=== PATIENT | female | born 1950 | race Caucasian/White ===

== ENCOUNTER → 2017-03-05 | Outpatient (CLI) | payer BC | LOC: FIMAGING 15:08 | PROVIDERS: ATTEND Internal Medicine | DX: Z12.31 Encounter for screening mammogram for malignant neoplasm of breast (principal); Z80.3 Family history of malignant neoplasm of breast | CPT/HCPCS: G0202 ==

== ENCOUNTER 2017-08-13 17:11 | Emergency (ER) | payer OTHER, MEDICARE ==
[2017-08-13] MEDS ORDERED: NS 500 ML IV ONE (17:27)
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
--- NOTE | 2017-08-13 17:57 | CPEKG ---
Heart Rate: 48 RR Interval: 1250 P-R Interval: 188 QRSD Interval: 98 QT Interval: 440 QTC Interval: 394 P [place]: 63 QRS [place]: -14 T Wave [place]: 61 EKG Severity - OTHERWISE NORMAL ECG - EKG Impression: SINUS BRADYCARDIA Electronically Signed By: Tariq Fleming 14-Aug-2017 10:56:41
[2017-08-13 18:25] LABS: PLATELET COUNT 265 10^3/uL (150-400)
[2017-08-13 18:42] VITALS: RESP 16
[2017-08-13 19:20] VITALS: BP 141/94; PULSE 55; TEMP 97.9; O2SAT 98
== END 2017-08-13 19:20 | disposition home or self-care (01) ==
DX: R00.2 Palpitations (principal); E86.9 Volume depletion, unspecified; I10 Essential (primary) hypertension; Z79.82 Long term (current) use of aspirin

== ENCOUNTER → 2018-04-11 | Outpatient (CLI) | payer OTHER, MEDICARE | LOC: FIMAGING 15:15 | PROVIDERS: ATTEND Internal Medicine | DX: Z12.31 Encounter for screening mammogram for malignant neoplasm of breast (principal); Z80.3 Family history of malignant neoplasm of breast ==

== ENCOUNTER → 2018-06-24 | Outpatient (CLI) | payer OTHER, MEDICARE | LOC: BMCIMAGING 14:48 | PROVIDERS: ATTEND Internal Medicine Rheumatology | DX: Z13.820 Encounter for screening for osteoporosis (principal); M81.0 Age-related osteoporosis without current pathological fracture; Z78.0 Asymptomatic menopausal state; Z87.81 Personal history of (healed) traumatic fracture ==

== ENCOUNTER 2018-08-11 13:21 | Inpatient (IN) | payer OTHER, MEDICARE ==
[2018-08-11] MEDS: HYDROmorphONE/DILAUDID 2 MG TAB PO PRN (19:38)
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
[2018-08-11] MEDS: MELATONIN 3 MG TAB PO SCH (21:26)
[2018-08-11] MEDS: METHOCARBAMOL 500 MG TAB PO SCH (21:26)
[2018-08-11] MEDS: ACETAMINOPHEN 500 MG TAB PO SCH (21:26)
[2018-08-11] MEDS: POLYETHYLENE GLYCOL 3350 17 GM PKT PO SCH (21:27)
[2018-08-11] MEDS: GABAPENTIN 300 MG CAP PO SCH (21:27)
[2018-08-12] MEDS: HYDROmorphONE/DILAUDID 2 MG TAB PO PRN ×5 (03:50→23:52)
[2018-08-12] MEDS: METHOCARBAMOL 500 MG TAB PO SCH (05:46)
[2018-08-12] MEDS: ENOXAPARIN 40 MG/0.4 ML SYR SC SCH (08:16)
[2018-08-12] MEDS: CHOLECALCIFEROL VIT D3 2,000 UNITS TAB/CAP PO SCH (08:17)
[2018-08-12] MEDS: SENNOSIDES/DOCUSATE SODIUM TAB PO SCH (08:17)
[2018-08-12] MEDS: ACETAMINOPHEN 500 MG TAB PO SCH ×3 (08:19→21:27)
[2018-08-12] MEDS: POLYETHYLENE GLYCOL 3350 17 GM PKT PO SCH ×2 (08:20→20:59)
[2018-08-12] MEDS: GABAPENTIN 300 MG CAP PO SCH ×3 (08:20→21:00)
[2018-08-12] MEDS: ASPIRIN EC 81 MG TAB PO SCH (08:20)
[2018-08-12] MEDS: LIDOCAINE 4%/MENTHOL 1% PATCH TD SCH (08:25)
[2018-08-12 09:07] LABS: PLATELET COUNT 483 10^3/uL (150-400)
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
--- NOTE | 2018-08-12 16:41 | PDOREHIP ---
Admission [facility] - Admission - 3 Day Assessment Period Admission Date/Day 1: 08/11/18 Day 2: 08/12/18 Day 3: 08/13/18 - Active Diagnoses Comorbidities and Co-existing Conditions at Admission: [id number]. None of the Above - Skin Conditions Unhealed Pressure Ulcer (1 or more/Stage 1 or >)-Admission: 0. No # Stage 1 Pressure Ulcers-Admission: 0 # Stage 2 Pressure Ulcers-Admission: 0 # Stage 3 Pressure Ulcers-Admission: 0 # Stage 4 Pressure Ulcers-Admission: 0 # Unstageable Pressure Ulcers (Non-remove Dress)-Admission: 0 # Unstageable Pressure Ulcers (Slough/Eschar)-Admission: 0 # Unstageable Pressure Ulcers (Deep Tissue Injury)-Admission: 0
[2018-08-12] MEDS: MELATONIN 3 MG TAB PO SCH (20:58)
[2018-08-13] MEDS: PATCH REMOVAL 1 EA PATCH TD SCH ×2 (04:35→22:12)
[2018-08-13] MEDS: HYDROmorphONE/DILAUDID 2 MG TAB PO PRN ×5 (04:36→22:18)
[2018-08-13] MEDS: GABAPENTIN 300 MG CAP PO SCH (07:54)
[2018-08-13] MEDS: ASPIRIN EC 81 MG TAB PO SCH (07:54)
[2018-08-13] MEDS: ACETAMINOPHEN 500 MG TAB PO SCH ×3 (07:54→22:14)
[2018-08-13] MEDS: ENOXAPARIN 40 MG/0.4 ML SYR SC SCH (07:55)
[2018-08-13] MEDS: CHOLECALCIFEROL VIT D3 2,000 UNITS TAB/CAP PO SCH (07:55)
[2018-08-13] MEDS: LIDOCAINE 4%/MENTHOL 1% PATCH TD SCH ×3 (08:08→20:42)
--- NOTE | 2018-08-13 09:25 | SOAPPROG ---
SOAP Progress Note Assessment/Plan: Assessment: Major multiple fractures status post ORIF of the left olecranon and ulna, left tibial plateau, and right femur with touchdown weightbearing on the left upper and lower extremity. PT and OT to optimize mobility and activities of daily living. * Initial functional independence measure is 58 on 08/13/2018. Moderate assist for bed mobility. Fearful with transfers, needs 2 person max assist. Sit to stand requires max assist with quad cane. .Left knee flexion limited to 45 degrees. Transfers better from and to raised surfaces. Upper body dressing with mon assist, lower body with mod assist. * Continue PT and OT. Cognitive issues post-concussion. * Continue FLUXER. Fatigue, morning of 08/12/2018. Unclear etiology. BMP wnl and not dehydrated. CBC with improved anemia but WBCs higher. * Check UA. * D/C gabapentin. Osteoporosis. She has been treated with denosumab and she was concerned about how that might affect her bone healing. Her last injection was in June of this year and she gets injections every 6 months. * Discussed with Dr. Miller, 08/12/2018. Denies you mad most likely does not interfere with healing, and there is no specific medication or other course of action to improve bone healing while on denosumab. * Resume her home dose of cholecalciferol, 5000 units q.day. Pain management. Continue hydromorphone as ordered out of the hospital. Increased gabapentin from 200 mg three times daily to 300 mg three times daily and will monitor efficacy of pain management. Did not continue ketorolac as she needs to be simultaneously on anticoagulation and she also takes aspirin, and ketorolac would add to her risk for GI bleed. * Nursing to offer hydromorphone prior to morning ADLs. Used 10 mg total in 24 hr on 08/12/2018. * Discontinue methocarbamol, 08/12/2018, as there does not seem to be muscle spasm. * Discontinue gabapentin, 08/12/2018, due to sedation. Also has not seemed to improve her pain management. Anemia most likely due to blood loss from trauma and surgeries had transfusions x2 with initial hospitalization. * Hemoglobin and hematocrit have drifted down from 8.1 and 25.5 on 08/09/2018 to 7.5 and 23.6 on 08/12/2018, likely expected post transfusion. Improving 2018. History of coronary stenting due to iatrogenic injury during coronary catheterization. Continue aspirin 81 mg daily. Hypertension. Blood pressure medications have been held. Monitor for increased blood pressure and reduce medications as needed. She is taking melatonin scheduled, presumably for insomnia, at 10 mg. We will discuss further regarding whether she is getting benefit from this and whether it should be continued. Opiate-induced constipation. Continue polyethylene glycol and senna. She will be monitored for efficacy and medications will be adjusted. Prophylaxis. With her recent trauma and her toe-touch weightbearing status on the left lower extremity, she is at elevated risk for DVT and will be treated with enoxaparin 40 mg subcutaneous daily. DISPOSITION: Attended staffing, 15 min. D/W case mgmt, wire splicer, pharmacist, nurse, PT, OT, FLUXER. may not be able to provide sufficient assistance; may consider respite stay at [facility], depending on progress. Discharge date set for 08/26/2018. Followup. * She is to follow up with orthopedic surgeon, Dr. Александр Jeronimo, at 2 weeks post surgery, which would be 08/20/2018. If she is to remain in inpatient rehabilitation at that time there will be discussion as to whether the appointment can be postponed. * Wound care and staple removal discussed with orthopedic surgeon Dr. Kennedy at [facility] in [place]. 11 days would be on the early side to remove josé from ORIF of right femur. Will order removal on 08/15/2018. * She can pursue followup with ENT if her nasal fracture does not heal with a satisfactory cosmetic result. * Her defective cigarette slitter is Dr. Modesto Miller and her primary care physician, Dr. Mary Anne Chang. 08/13/18 20:22 Subjective: Complains of severe fatigue this morning. She did not shower with OT. She was having off difficult time holding her head up off the pillow. She is feeling better now. No fevers or chills, no cough or dyspnea, no nausea, vomiting, constipation, or diarrhea. Feeling better now, sitting up on the edge of the bed with Occupational therapy. Objective: Vital Signs Temp Pulse Resp BP Pulse Ox 36.7 C 56 L 15 107/64 92 08/13/18 06:32 08/13/18 06:32 08/13/18 06:32 08/13/18 06:32 08/13/18 06:32 Laboratory Results 08/12/18 06:00 08/12/18 06:00 08/12/18 08/13/18 08/14/18 05:59 05:59 05:59 Intake Total 270 840 Output Total 400 800 Balance -130 40 - Time Spent With Patient Time Spent With Patient: Greater than 35 minutes floor time today, including more than 50% of time in coordination of care during staffing meeting, and counseling patient. Physical Exam - Physical Exam General Appearance: WD/WN, alert, no apparent distress, thin Respiratory: normal breath sounds, No crackles, No rhonchi, No wheezing Cardiac/Chest: regular rate, rhythm, No edema, No diastolic murmur, No systolic murmur Skin: normal color, warm/dry Neuro/Psych: no motor/sensory deficits, alert, normal mood/affect, oriented x 3 ICD10 Worksheet Patient Problems: Problems Problem Status Onset Pubic ramus fracture Acute
[2018-08-13 10:28] LABS: PLATELET COUNT 526 10^3/uL (150-400)
[2018-08-13] MEDS: SENNOSIDES/DOCUSATE SODIUM TAB PO SCH (20:43)
[2018-08-13] MEDS: POLYETHYLENE GLYCOL 3350 17 GM PKT PO SCH ×2 (20:43→22:12)
[2018-08-13] MEDS: MELATONIN 3 MG TAB PO SCH (21:40)
[2018-08-14] MEDS: HYDROmorphONE/DILAUDID 2 MG TAB PO PRN ×3 (03:58→22:03)
[2018-08-14] MEDS: ACETAMINOPHEN 500 MG TAB PO SCH ×3 (08:01→21:19)
[2018-08-14] MEDS: ENOXAPARIN 40 MG/0.4 ML SYR SC SCH (08:02)
[2018-08-14] MEDS: LIDOCAINE 4%/MENTHOL 1% PATCH TD SCH (08:05)
[2018-08-14] MEDS: CHOLECALCIFEROL VIT D3 2,000 UNITS TAB/CAP PO SCH (09:14)
[2018-08-14] MEDS: SENNOSIDES/DOCUSATE SODIUM TAB PO SCH (09:19)
[2018-08-14] MEDS: POLYETHYLENE GLYCOL 3350 17 GM PKT PO SCH ×2 (09:19→21:16)
[2018-08-14] MEDS: ASPIRIN EC 81 MG TAB PO SCH (09:19)
[2018-08-14] MEDS ORDERED: ONDANSETRON DISINTEGRATING 4 MG TAB PO ONE (10:01)
--- NOTE | 2018-08-14 11:59 | SOAPPROG ---
SOAP Progress Note Assessment/Plan: Assessment: Major multiple fractures status post ORIF of the left olecranon and ulna, left tibial plateau, and right femur with touchdown weightbearing on the left upper and lower extremity. PT and OT to optimize mobility and activities of daily living. * Initial functional independence measure is 58 on 08/13/2018. Moderate assist for bed mobility. Fearful with transfers, needs 2 person max assist. Sit to stand requires max assist with quad cane. .Left knee flexion limited to 45 degrees. Transfers better from and to raised surfaces. Upper body dressing with min assist, lower body with mod assist. * Continue PT and OT. Cognitive issues post-concussion. * Continue NET WASHER. Fatigue, morning of 08/12/2018. Unclear etiology. BMP wnl and not dehydrated. CBC with improved anemia but WBCs higher. * Improved with DC of gabapentin. * UA consistent with UTI, 08/13/2018. Start nitrofurantoin 100 mg BID 08/14/2018 for 7 days. Ordered urine culture 08/14/2017. Orthostatic hypotension. * She has had reduced p.o intake due to desire to reduce nocturia and use of bed bearden. * May also be related to prolonged time supine during her hospitalization. * Encourage increased fluid intake but can stop after dinner. Hope that nocturia improves with treatment of UTI. Osteoporosis. She has been treated with denosumab and she was concerned about how that might affect her bone healing. Her last injection was in June of this year and she gets injections every 6 months. * Discussed with Dr. Miller, 08/12/2018. Denies you mad most likely does not interfere with healing, and there is no specific medication or other course of action to improve bone healing while on denosumab. * Resume her home dose of cholecalciferol, 5000 units q.day. Pain management. Continue hydromorphone as ordered out of the hospital. Increased gabapentin from 200 mg three times daily to 300 mg three times daily and will monitor efficacy of pain management. Did not continue ketorolac as she needs to be simultaneously on anticoagulation and she also takes aspirin, and ketorolac would add to her risk for GI bleed. * Nursing to offer hydromorphone prior to morning ADLs. Used 10 mg total in 24 hr on 08/12/2018 and 08/13/2018. * Discontinue methocarbamol, 08/12/2018, as there does not seem to be muscle spasm. * Discontinue gabapentin, 08/12/2018, due to sedation. Also has not seemed to improve her pain management. Anemia most likely due to blood loss from trauma and surgeries had transfusions x2 with initial hospitalization. * Hemoglobin and hematocrit have drifted down from 8.1 and 25.5 on 08/09/2018 to 7.5 and 23.6 on 08/12/2018, likely expected post transfusion. Improving 2018. History of coronary stenting due to iatrogenic injury during coronary catheterization. Continue aspirin 81 mg daily. Hypertension. Blood pressure medications have been held. Monitor for increased blood pressure and reduce medications as needed. She is taking melatonin scheduled, presumably for insomnia, at 10 mg. We will discuss further regarding whether she is getting benefit from this and whether it should be continued. Opiate-induced constipation. Continue polyethylene glycol and senna. She will be monitored for efficacy and medications will be adjusted. Prophylaxis. With her recent trauma and her toe-touch weightbearing status on the left lower extremity, she is at elevated risk for DVT and will be treated with enoxaparin 40 mg subcutaneous daily. DISPOSITION: may not be able to provide sufficient assistance; may consider respite stay at [facility], depending on progress. Discharge date set for . Followup. * She is to follow up with orthopedic surgeon, Dr. Александр Jeronimo, at 2 weeks post surgery, which would be 08/20/2018. If she is to remain in inpatient rehabilitation at that time there will be discussion as to whether the appointment can be postponed. * Wound care and staple removal discussed with orthopedic surgeon Dr. Kennedy at [facility] in [place]. 11 days would be on the early side to remove josé from ORIF of right femur. Will order removal on 08/15/2018. * She can pursue followup with ENT if her nasal fracture does not heal with a satisfactory cosmetic result. * Her warp tying machine knotter is Dr. Modesto Miller and her primary care physician, Dr. Mary Anne Chang. 08/14/18 14:37 Subjective: Has been feeling hot and feeling chilled. Happened this morning while she was in the wheelchair. She also felt lightheaded. She is not aware of dysuria. She says she always urinary frequently though she has had nocturia and she is limiting her daytime fluid intake due to the nocturia and her dislike of using the bedpan. No cough or dyspnea. No soreness around her incisions. Objective: Vital Signs Temp Pulse Resp BP Pulse Ox 36.8 C 51 L 16 99/61 L 94 08/14/18 09:11 08/14/18 09:48 08/14/18 09:28 08/14/18 09:48 08/14/18 09:35 Laboratory Results 08/13/18 09:40 08/13/18 09:40 08/13/18 08/14/18 08/15/18 05:59 05:59 05:59 Intake Total 840 790 Output Total 800 1925 200 Balance 40 -1135 -200 Physical Exam - Physical Exam General Appearance: WD/WN, alert, no apparent distress Respiratory: No respiratory distress, No accessory muscle use Neuro/Psych: no motor/sensory deficits, alert, normal mood/affect, oriented x 3 ICD10 Worksheet Patient Problems: Problems Problem Status Onset Pubic ramus fracture Acute
[2018-08-14] MEDS: NITROFURANTOIN MACROBID 100 MG CAP PO SCH ×2 (14:49→21:19)
[2018-08-14] MEDS: MELATONIN 3 MG TAB PO SCH (21:19)
[2018-08-14] MEDS: PATCH REMOVAL 1 EA PATCH TD SCH (21:23)
[2018-08-15] MEDS: HYDROmorphONE/DILAUDID 2 MG TAB PO PRN (04:02)
[2018-08-15] MEDS ORDERED: HYDROmorphONE/DILAUDID 2 MG TAB PO PRN (05:20)
[2018-08-15] MEDS: METHOCARBAMOL 500 MG TAB PO ONE ×2 (05:30→06:06)
[2018-08-15] MEDS: LIDOCAINE 4%/MENTHOL 1% PATCH TD SCH (08:27)
[2018-08-15] MEDS: NITROFURANTOIN MACROBID 100 MG CAP PO SCH ×2 (08:28→21:01)
[2018-08-15] MEDS: ENOXAPARIN 40 MG/0.4 ML SYR SC SCH (08:28)
[2018-08-15] MEDS: ACETAMINOPHEN 500 MG TAB PO SCH ×3 (08:28→21:01)
[2018-08-15] MEDS: ASPIRIN EC 81 MG TAB PO SCH (08:29)
[2018-08-15] MEDS: CHOLECALCIFEROL VIT D3 2,000 UNITS TAB/CAP PO SCH (08:30)
[2018-08-15] MEDS: SENNOSIDES/DOCUSATE SODIUM TAB PO SCH (08:31)
[2018-08-15] MEDS: POLYETHYLENE GLYCOL 3350 17 GM PKT PO SCH ×2 (08:31→21:21)
--- NOTE | 2018-08-15 11:25 | SOAPPROG ---
SOAP Progress Note Assessment/Plan: Assessment: Major multiple fractures status post ORIF of the left olecranon and ulna, left tibial plateau, and right femur with touchdown weightbearing on the left upper and lower extremity. PT and OT to optimize mobility and activities of daily living. * Initial functional independence measure is 58 on 08/13/2018. Moderate assist for bed mobility. Fearful with transfers, needs 2 person max assist. Sit to stand requires max assist with quad cane. .Left knee flexion limited to 45 degrees. Transfers better from and to raised surfaces. Upper body dressing with min assist, lower body with mod assist. * Continue PT and OT. Cognitive issues post-concussion. * Continue RN HOME CARE. UTI; UA consistent with UTI, 08/13/2018. Started nitrofurantoin 100 mg BID 2018 for 7 days. Ordered urine culture 08/14/2017. * Trial of pyridium at HS 08/15/2018 to try to reduce irritative voiding symptoms. Insomnia. * Fatigue, morning of 08/12/2018. Unclear etiology. BMP wnl and not dehydrated. CBC with improved anemia but WBCs higher. * Improved with DC of gabapentin. * Discontinue melatonin as it has not been effective. Initiate trazodone 25 mg at HS starting 08/15/2018. Will also initiate morphine SR 15 mg at HS. Orthostatic hypotension. * She has had reduced p.o intake due to desire to reduce nocturia and use of bed bearden. * May also be related to prolonged time supine during her hospitalization. * Encourage increased fluid intake but can stop after dinner. Hope that nocturia improves with treatment of UTI. Osteoporosis. She has been treated with denosumab and she was concerned about how that might affect her bone healing. Her last injection was in June of this year and she gets injections every 6 months. * Discussed with Dr. Miller, 08/12/2018. Denies you mad most likely does not interfere with healing, and there is no specific medication or other course of action to improve bone healing while on denosumab. * Resume her home dose of cholecalciferol, 5000 units q.day. Pain management. Continue hydromorphone as ordered out of the hospital. Increased gabapentin from 200 mg three times daily to 300 mg three times daily and will monitor efficacy of pain management. Did not continue ketorolac as she needs to be simultaneously on anticoagulation and she also takes aspirin, and ketorolac would add to her risk for GI bleed. * Nursing to offer hydromorphone prior to morning ADLs. Used 10 mg total in 24 hr on 08/12/2018 and 08/13/2018. * Discontinue methocarbamol, 08/12/2018, as there does not seem to be muscle spasm. * Discontinue gabapentin, 08/12/2018, due to sedation. Also has not seemed to improve her pain management. * Trial of morphine SR at , 08/15/2018. Anemia most likely due to blood loss from trauma and surgeries had transfusions x2 with initial hospitalization. * Hemoglobin and hematocrit have drifted down from 8.1 and 25.5 on 08/09/2018 to 7.5 and 23.6 on 08/12/2018, likely expected post transfusion. Improving 2018. History of coronary stenting due to iatrogenic injury during coronary catheterization. Continue aspirin 81 mg daily. Hypertension. Blood pressure medications have been held. Monitor for increased blood pressure and reduce medications as needed. Anxiety. She is reticent to take medications. Hope for improvement with better sleep. Opiate-induced constipation. Continue polyethylene glycol and senna. She will be monitored for efficacy and medications will be adjusted. Prophylaxis. With her recent trauma and her toe-touch weightbearing status on the left lower extremity, she is at elevated risk for DVT and will be treated with enoxaparin 40 mg subcutaneous daily. DISPOSITION: may not be able to provide sufficient assistance; may consider respite stay at [facility], depending on progress. Discharge date set for . Followup. * She is to follow up with orthopedic surgeon, Dr. Александр Jeronimo, at 2 weeks post surgery, which would be 08/20/2018. If she is to remain in inpatient rehabilitation at that time there will be discussion as to whether the appointment can be postponed. * Wound care and staple removal discussed with orthopedic surgeon Dr. Kennedy at [facility] in [place]. 11 days would be on the early side to remove josé from ORIF of right femur. Will order removal on 08/15/2018. * She can pursue followup with ENT if her nasal fracture does not heal with a satisfactory cosmetic result. * Her jelly maker is Dr. Modesto Miller and her primary care physician, Dr. Mary Anne Chang. 08/15/18 11:17 Subjective: Had a difficult night last night, with pain in the right leg and urinary frequency Q 2 hours. Nurse noted incontinent of feces and urine, of which the patient was not aware. Needed no hydromorphone through the day yesterday and wonders if she was having withdrawal symptoms. Also noted nausea within an hour after taking hydromorphone on 2 separate occasions. Objective: Vital Signs Temp Pulse Resp BP Pulse Ox 36.7 C 51 L 16 136/78 H 96 08/15/18 06:07 08/15/18 06:07 08/15/18 06:07 08/15/18 06:07 08/15/18 06:07 Laboratory Results 08/13/18 09:40 08/13/18 09:40 08/14/18 08/15/18 08/16/18 05:59 05:59 05:59 Intake Total 790 1050 Output Total 1925 1550 Balance -1135 -500 Physical Exam - Physical Exam General Appearance: WD/WN, alert, no apparent distress Respiratory: normal breath sounds, No crackles, No rhonchi, No wheezing Cardiac/Chest: No edema Neuro/Psych: no motor/sensory deficits, alert, normal mood/affect, oriented x 3 ICD10 Worksheet Patient Problems: Problems Problem Status Onset Pubic ramus fracture Acute
[2018-08-15] MEDS: PHENAZOPYRIDINE HCL 100 MG TAB PO SCH (18:38)
[2018-08-15] MEDS ORDERED: morphINE SR 15 MG TAB PO SCH (21:00)
[2018-08-15] MEDS: PATCH REMOVAL 1 EA PATCH TD SCH (21:41)
[2018-08-15] MEDS: traZODone 50 MG TAB PO SCH (22:04)
[2018-08-15] MEDS ORDERED: IBUPROFEN 600 MG TAB PO ONE ×2 (22:21→22:30)
[2018-08-16] MEDS: ASPIRIN EC 81 MG TAB PO SCH (08:54)
[2018-08-16] MEDS: ENOXAPARIN 40 MG/0.4 ML SYR SC SCH (08:54)
[2018-08-16] MEDS: NITROFURANTOIN MACROBID 100 MG CAP PO SCH (08:54)
[2018-08-16] MEDS: ACETAMINOPHEN 500 MG TAB PO SCH ×3 (08:55→20:32)
[2018-08-16] MEDS: SENNOSIDES/DOCUSATE SODIUM TAB PO SCH (08:55)
[2018-08-16] MEDS: CHOLECALCIFEROL VIT D3 2,000 UNITS TAB/CAP PO SCH (08:55)
[2018-08-16] MEDS: POLYETHYLENE GLYCOL 3350 17 GM PKT PO SCH ×2 (08:58→21:04)
[2018-08-16] MEDS: LIDOCAINE 4%/MENTHOL 1% PATCH TD SCH (09:48)
[2018-08-16] MEDS ORDERED: FLUCONAZOLE 150 MG TAB PO ONE (11:12)
--- NOTE | 2018-08-16 11:51 | HOSPPROG ---
Hospitalist Progress Note Assessment/Plan: Major multiple fractures status post ORIF of the left olecranon and ulna, left tibial plateau, and right femur with touchdown weightbearing on the left upper and lower extremity. PT and OT to optimize mobility and activities of daily living. * Initial functional independence measure is 58 on 08/13/2018. Moderate assist for bed mobility. Fearful with transfers, needs 2 person max assist. Sit to stand requires max assist with quad cane. .Left knee flexion limited to 45 degrees. Transfers better from and to raised surfaces. Upper body dressing with min assist, lower body with mod assist. * Continue PT and OT. Cognitive issues post-concussion. * Continue ORGANIC SEARCH LEAD. UTI; UA consistent with UTI, 08/13/2018. Started nitrofurantoin 100 mg BID 2018 for 7 days. Ordered urine culture 08/14/2017. * Trial of pyridium at HS 08/15/2018 to try to reduce irritative voiding symptoms. * ABX SWITCHED TO KEFLEX TO COVERSKIN INFECTION. SENSITIVE ON CULTURE CELLULITIS AROUND INCISION * PROBABLY CELLULITIS. HAS BEENON DVT PROPH SINCE SURGERY SO DOUBT DVT. COULD BE FROM LEG BEING MORE DEPENDANT IN REHAB * WILL START KEFLEX TODAY AND CONSIDER SWITCHING TO ANCEF IF NO BETTER Insomnia. * Fatigue, morning of 08/12/2018. Unclear etiology. BMP wnl and not dehydrated. CBC with improved anemia but WBCs higher. * Improved with DC of gabapentin. * Discontinue melatonin as it has not been effective. Initiate trazodone 25 mg at HS starting 08/15/2018. Will also initiate morphine SR 15 mg at HS. * SLEPT WELL WITH TRAZADONE - NOT REALLY WITH MORPHINE. SHE WILL TAKE THAT EARLIER AND MAKE MS CONTIN PRN Orthostatic hypotension. * She has had reduced p.o intake due to desire to reduce nocturia and use of bed bearden. * May also be related to prolonged time supine during her hospitalization. * Encourage increased fluid intake but can stop after dinner. Hope that nocturia improves with treatment of UTI. Osteoporosis. She has been treated with denosumab and she was concerned about how that might affect her bone healing. Her last injection was in June of this year and she gets injections every 6 months. * Discussed with Dr. Miller, 08/12/2018. Denies you mad most likely does not interfere with healing, and there is no specific medication or other course of action to improve bone healing while on denosumab. * Resume her home dose of cholecalciferol, 5000 units q.day. Pain management. Continue hydromorphone as ordered out of the hospital. Increased gabapentin from 200 mg three times daily to 300 mg three times daily and will monitor efficacy of pain management. Did not continue ketorolac as she needs to be simultaneously on anticoagulation and she also takes aspirin, and ketorolac would add to her risk for GI bleed. * Nursing to offer hydromorphone prior to morning ADLs. Used 10 mg total in 24 hr on 08/12/2018 and 08/13/2018. * Discontinue methocarbamol, 08/12/2018, as there does not seem to be muscle spasm. * Discontinue gabapentin, 08/12/2018, due to sedation. Also has not seemed to improve her pain management. * Trial of morphine SR at , 08/15/2018. Anemia most likely due to blood loss from trauma and surgeries had transfusions x2 with initial hospitalization. * Hemoglobin and hematocrit have drifted down from 8.1 and 25.5 on 08/09/2018 to 7.5 and 23.6 on 08/12/2018, likely expected post transfusion. Improving 2018. History of coronary stenting due to iatrogenic injury during coronary catheterization. Continue aspirin 81 mg daily. Hypertension. Blood pressure medications have been held. Monitor for increased blood pressure and reduce medications as needed. Anxiety. She is reticent to take medications. Hope for improvement with better sleep. Opiate-induced constipation. Continue polyethylene glycol and senna. She will be monitored for efficacy and medications will be adjusted. Prophylaxis. With her recent trauma and her toe-touch weightbearing status on the left lower extremity, she is at elevated risk for DVT and will be treated with enoxaparin 40 mg subcutaneous daily. DISPOSITION: may not be able to provide sufficient assistance; may consider respite stay at [facility], depending on progress. Discharge date set for . Followup. * She is to follow up with orthopedic surgeon, Dr. Александр Jeronimo, at 2 weeks post surgery, which would be 08/20/2018. If she is to remain in inpatient rehabilitation at that time there will be discussion as to whether the appointment can be postponed. * Wound care and staple removal discussed with orthopedic surgeon Dr. Kennedy at [facility] in [place]. 11 days would be on the early side to remove josé from ORIF of right femur. Will order removal on 08/15/2018. * She can pursue followup with ENT if her nasal fracture does not heal with a satisfactory cosmetic result. * Her bsw is Dr. Modesto Miller and her primary care physician, Dr. Mary Anne Chang. Subjective: slept better with trazadone. left leg feels more warm and swollen. Objective: Vital Signs Temp Pulse Resp BP Pulse Ox 37.1 C 67 16 106/71 93 08/16/18 06:07 08/16/18 09:12 08/16/18 06:07 08/16/18 09:12 08/16/18 06:07 Microbiology 08/13/18 21:00 Urine Culture - Final Urine,Clean Catch Escherichia Coli Laboratory Results 08/13/18 09:40 08/13/18 09:40 08/15/18 08/16/18 08/17/18 05:59 05:59 05:59 Intake Total 1050 1350 Output Total 1550 2550 525 Balance -500 -1200 -525 - Physical Exam Constitutional: no apparent distress, appears nourished, not in pain Eyes: anicteric sclera, EOMI Cardiovascular: regular rate and rhythym, no murmur, rub, or gallop Respiratory: no respiratory distress Gastrointestinal: normoactive bowel sounds, soft, non-tender abdomen, no palpable masses Skin: other (incision is dry) Neurologic: AAOx3 Psychiatric: interacting appropriately, not anxious, not encephalopathic, thought process linear ICD10 Worksheet Patient Problems: Problems Problem Status Onset Pubic ramus fracture Acute
[2018-08-16] MEDS: CEPHALEXIN 500 MG CAP PO SCH ×3 (12:04→22:08)
[2018-08-16] MEDS: PHENAZOPYRIDINE HCL 100 MG TAB PO SCH (17:13)
[2018-08-16] MEDS: traZODone 50 MG TAB PO SCH (20:32)
[2018-08-16] MEDS: PATCH REMOVAL 1 EA PATCH TD SCH (21:03)
[2018-08-17] MEDS: CEPHALEXIN 500 MG CAP PO SCH ×3 (05:09→17:49)
[2018-08-17] MEDS: LIDOCAINE 4%/MENTHOL 1% PATCH TD SCH (05:22)
[2018-08-17] MEDS: ACETAMINOPHEN 500 MG TAB PO SCH ×3 (08:41→20:31)
[2018-08-17] MEDS: POLYETHYLENE GLYCOL 3350 17 GM PKT PO SCH ×2 (08:41→20:32)
[2018-08-17] MEDS: SENNOSIDES/DOCUSATE SODIUM TAB PO SCH (08:41)
[2018-08-17] MEDS: ASPIRIN EC 81 MG TAB PO SCH (08:42)
[2018-08-17] MEDS: CHOLECALCIFEROL VIT D3 2,000 UNITS TAB/CAP PO SCH (08:42)
[2018-08-17] MEDS: ENOXAPARIN 40 MG/0.4 ML SYR SC SCH (08:42)
--- NOTE | 2018-08-17 12:16 | HOSPPROG ---
Hospitalist Progress Note Assessment/Plan: Major multiple fractures status post ORIF of the left olecranon and ulna, left tibial plateau, and right femur with touchdown weightbearing on the left upper and lower extremity. PT and OT to optimize mobility and activities of daily living. * Initial functional independence measure is 58 on 08/13/2018. Moderate assist for bed mobility. Fearful with transfers, needs 2 person max assist. Sit to stand requires max assist with quad cane. .Left knee flexion limited to 45 degrees. Transfers better from and to raised surfaces. Upper body dressing with min assist, lower body with mod assist. * Continue PT and OT. Cognitive issues post-concussion. * Continue RAW MATERIAL PLANNER. UTI; UA consistent with UTI, 08/13/2018. Started nitrofurantoin 100 mg BID 2018 for 7 days. Ordered urine culture 08/14/2017. * Trial of pyridium at HS 08/15/2018 to try to reduce irritative voiding symptoms. * ABX SWITCHED TO KEFLEX TO COVER SKIN INFECTION. SENSITIVE ON CULTURE CELLULITIS AROUND INCISION * PROBABLY CELLULITIS. HAS BEEN ON DVT PROPH SINCE SURGERY SO DOUBT DVT. COULD BE FROM LEG BEING MORE DEPENDANT IN REHAB * IMPROVING ON KEFLEX - CONT TO MONITOR Insomnia. * Fatigue, morning of 08/12/2018. Unclear etiology. BMP wnl and not dehydrated. CBC with improved anemia but WBCs higher. * Improved with DC of gabapentin. * Discontinue melatonin as it has not been effective. Initiate trazodone 25 mg at HS starting 08/15/2018. Will also initiate morphine SR 15 mg at HS. * WILL TRY TRAZADONE AND MORPHINE AGAIN - WAS IN SOME PAIN LAST NIGHT Orthostatic hypotension. * She has had reduced p.o intake due to desire to reduce nocturia and use of bed bearden. * May also be related to prolonged time supine during her hospitalization. * Encourage increased fluid intake but can stop after dinner. Hope that nocturia improves with treatment of UTI. Osteoporosis. She has been treated with denosumab and she was concerned about how that might affect her bone healing. Her last injection was in June of this year and she gets injections every 6 months. * Discussed with Dr. Miller, 08/12/2018. Denies you mad most likely does not interfere with healing, and there is no specific medication or other course of action to improve bone healing while on denosumab. * Resume her home dose of cholecalciferol, 5000 units q.day. Pain management. Continue hydromorphone as ordered out of the hospital. Increased gabapentin from 200 mg three times daily to 300 mg three times daily and will monitor efficacy of pain management. Did not continue ketorolac as she needs to be simultaneously on anticoagulation and she also takes aspirin, and ketorolac would add to her risk for GI bleed. * Nursing to offer hydromorphone prior to morning ADLs. Used 10 mg total in 24 hr on 08/12/2018 and 08/13/2018. * Discontinue methocarbamol, 08/12/2018, as there does not seem to be muscle spasm. * Discontinue gabapentin, 08/12/2018, due to sedation. Also has not seemed to improve her pain management. * Trial of morphine SR at , 08/15/2018. Anemia most likely due to blood loss from trauma and surgeries had transfusions x2 with initial hospitalization. * Hemoglobin and hematocrit have drifted down from 8.1 and 25.5 on 08/09/2018 to 7.5 and 23.6 on 08/12/2018, likely expected post transfusion. Improving 2018. History of coronary stenting due to iatrogenic injury during coronary catheterization. Continue aspirin 81 mg daily. Hypertension. Blood pressure medications have been held. Monitor for increased blood pressure and reduce medications as needed. Anxiety. She is reticent to take medications. Hope for improvement with better sleep. Opiate-induced constipation. Continue polyethylene glycol and senna. She will be monitored for efficacy and medications will be adjusted. Prophylaxis. With her recent trauma and her toe-touch weightbearing status on the left lower extremity, she is at elevated risk for DVT and will be treated with enoxaparin 40 mg subcutaneous daily. DISPOSITION: may not be able to provide sufficient assistance; may consider respite stay at [facility], depending on progress. Discharge date set for . Followup. * She is to follow up with orthopedic surgeon, Dr. Александр Jeronimo, at 2 weeks post surgery, which would be 08/20/2018. If she is to remain in inpatient rehabilitation at that time there will be discussion as to whether the appointment can be postponed. * Wound care and staple removal discussed with orthopedic surgeon Dr. Kennedy at [facility] in [place]. 11 days would be on the early side to remove josé from ORIF of right femur. Will order removal on 08/15/2018. * She can pursue followup with ENT if her nasal fracture does not heal with a satisfactory cosmetic result. * Her arbor end mainspring former is Dr. Modesto Miller and her primary care physician, Dr. Mary Anne Chang. Subjective: didn't sleep as well last night. leg feels better Objective: Vital Signs Temp Pulse Resp BP Pulse Ox 36.6 C 58 L 15 124/86 H 95 08/17/18 05:27 08/17/18 09:08 08/17/18 05:27 08/17/18 09:08 08/17/18 05:27 Microbiology 08/13/18 21:00 Urine Culture - Final Urine,Clean Catch Escherichia Coli Laboratory Results 08/13/18 09:40 08/13/18 09:40 08/16/18 08/17/18 08/18/18 05:59 05:59 05:59 Intake Total 1350 750 600 Output Total 2550 2126 550 Balance -1200 -1376 50 - Physical Exam Constitutional: no apparent distress, appears nourished, not in pain Eyes: anicteric sclera, EOMI Ears, Nose, Mouth, Throat: moist mucous membranes Cardiovascular: regular rate and rhythym Respiratory: no respiratory distress, no rales or rhonchi, clear to auscultation Skin: other (left leg - improved erythema) Neurologic: AAOx3 Psychiatric: interacting appropriately, not anxious, not encephalopathic, thought process linear ICD10 Worksheet Patient Problems: Problems Problem Status Onset Pubic ramus fracture Acute
[2018-08-17] MEDS: traZODone 50 MG TAB PO SCH (20:31)
[2018-08-17] MEDS: morphINE SR 15 MG TAB PO PRN (20:31)
[2018-08-17] MEDS: PATCH REMOVAL 1 EA PATCH TD SCH (20:32)
[2018-08-18] MEDS: CEPHALEXIN 500 MG CAP PO SCH ×4 (01:00→18:00)
[2018-08-18] MEDS: LIDOCAINE 4%/MENTHOL 1% PATCH TD SCH (08:58)
[2018-08-18] MEDS: CHOLECALCIFEROL VIT D3 2,000 UNITS TAB/CAP PO SCH (09:00)
[2018-08-18] MEDS: POLYETHYLENE GLYCOL 3350 17 GM PKT PO SCH ×2 (09:00→21:35)
[2018-08-18] MEDS: ACETAMINOPHEN 500 MG TAB PO SCH ×3 (09:01→21:34)
[2018-08-18] MEDS: ASPIRIN EC 81 MG TAB PO SCH (09:01)
[2018-08-18] MEDS: ENOXAPARIN 40 MG/0.4 ML SYR SC SCH (09:02)
[2018-08-18] MEDS ORDERED: SENNOSIDES/DOCUSATE SODIUM TAB PO PRN (09:04)
--- NOTE | 2018-08-18 09:59 | SOAPPROG ---
SOAP Progress Note Assessment/Plan: Assessment: Major multiple fractures status post ORIF of the left olecranon and ulna, left tibial plateau, and right femur with touchdown weightbearing on the left upper and lower extremity. PT and OT to optimize mobility and activities of daily living. * Initial functional independence measure is 58 on 08/13/2018. Moderate assist for bed mobility. Fearful with transfers, needs 2 person max assist. Sit to stand requires max assist with quad cane. Left knee flexion limited to 45 degrees. Transfers better from and to raised surfaces. Upper body dressing with min assist, lower body with mod assist. * Has progressed to standby assist for bed mobility and moderate to maximal assist of 1 person for transfers. * Discussed with orthopedic KOMAL Oconnor, studio assistant for Dr. Jeronimo. May remove splint from the left upper extremity and initiate hinged brace with range of motion 0-90 degrees. * Continue PT and OT. Cognitive issues post-concussion. * Continue HEMP FIBER TAKER OFF. Infections: UTI and cellulitis. UA consistent with UTI, 08/13/2018. Started nitrofurantoin 100 mg BID 08/14/2018 for 7 days. Ordered urine culture 2017. * Had pyridium at HS starting 08/15/2018 X 2 days to try to reduce irritative voiding symptoms overnight. * Bearden-sensitive E. coli on urine culture. * Antibiotics changed to cephalexin for left lower leg cellulitis, which has responded well. Continue 7 days total. Insomnia. * Fatigue, morning of 08/12/2018. Unclear etiology. BMP wnl and not dehydrated. CBC with improved anemia but WBCs higher. * Improved with DC of gabapentin. * Discontinue melatonin as it has not been effective. Initiated trazodone 25 mg at HS starting 08/15/2018 and morphine SR 15 mg at HS. Orthostatic hypotension. * She has had reduced p.o intake due to desire to reduce nocturia and use of bed bearden. * May also be related to prolonged time supine during her hospitalization. * Encourage increased fluid intake but can stop after dinner. Hope that nocturia improves with treatment of UTI. Osteoporosis. She has been treated with denosumab and she was concerned about how that might affect her bone healing. Her last injection was in June of this year and she gets injections every 6 months. * Discussed with Dr. Miller, 08/12/2018. Denies you mad most likely does not interfere with healing, and there is no specific medication or other course of action to improve bone healing while on denosumab. * Resume her home dose of cholecalciferol, 5000 units q.day. Pain management. Continue hydromorphone as ordered out of the hospital. Increased gabapentin from 200 mg three times daily to 300 mg three times daily and will monitor efficacy of pain management. Did not continue ketorolac as she needs to be simultaneously on anticoagulation and she also takes aspirin, and ketorolac would add to her risk for GI bleed. * Nursing to offer hydromorphone prior to morning ADLs. Not used since . * Discontinued methocarbamol, 08/12/2018, as there does not seem to be muscle spasm. * Discontinued gabapentin, 08/12/2018, due to sedation. Also has not seemed to improve her pain management. * Trial of morphine SR at , 08/15/2018. Anemia most likely due to blood loss from trauma and surgeries. Had transfusions x2 with initial hospitalization. * Hemoglobin and hematocrit have drifted down from 8.1 and 25.5 on 08/09/2018 to 7.5 and 23.6 on 08/12/2018, likely expected post transfusion. Improving 2018. History of coronary stenting due to iatrogenic injury during coronary catheterization. Continue aspirin 81 mg daily. Hypertension. Blood pressure medications have been held. Monitor for increased blood pressure and reduce medications as needed. Anxiety. She is reticent to take medications. Hope for improvement with better sleep. Opiate-induced constipation. Continue polyethylene glycol and senna. Has had multiple bowel movements. Laxatives have been changed to p.r.n.. Prophylaxis. With her recent trauma and her toe-touch weightbearing status on the left lower extremity, she is at elevated risk for DVT and will be treated with enoxaparin 40 mg subcutaneous daily. DISPOSITION: may not be able to provide sufficient assistance; may consider respite stay at [facility], depending on progress. Discharge date set for . Followup. * She was to follow up with orthopedic surgeon, Dr. Александр Jeronimo, at 2 weeks post surgery, which would be 08/20/2018. Discussed with KOMAL Oconnor, studio assistant Dr. Jeronimo , 08/18/2018. Does need to follow up this week. There would be no change in weight-bearing status and they would not be taking x-rays. Acute of follow-up after discharge. * Wound care and staple removal discussed with orthopedic surgeon Dr. Kennedy at in [place]. 11 days would be on the early side to remove josé from ORIF of right femur. Will order removal on 08/15/2018. * She can pursue followup with ENT if her nasal fracture does not heal with a satisfactory cosmetic result. * Her planisher is Dr. Modesto Miller and her primary care physician, Dr. Mary Anne Chang. 08/19/18 10:53 Subjective: Slept well last night and overall is feeling better. Limited in her ability to stand due to pain in the right thigh. She denies lightheadedness with standing. Had frequent bowel movements yesterday and laxatives have been held. Objective: Vital Signs Temp Pulse Resp BP Pulse Ox 36.9 C 54 L 14 124/72 H 95 08/18/18 06:22 08/18/18 06:22 08/18/18 06:22 08/18/18 06:22 08/18/18 06:22 Laboratory Results 08/13/18 09:40 08/13/18 09:40 08/17/18 08/18/18 08/19/18 05:59 05:59 05:59 Intake Total 750 1250 Output Total 3718 3751 Balance -1376 -1006 - Time Spent With Patient Time Spent With Patient: Greater than 35 min floor time today, including coordination of care in discussion with the orthopedic service. Physical Exam - Physical Exam General Appearance: WD/WN, alert, no apparent distress Respiratory: No respiratory distress, No accessory muscle use Cardiac/Chest: No edema Skin: normal color, warm/dry, other (No signs of cellulitis left lower extremity.) Neuro/Psych: no motor/sensory deficits, alert, normal mood/affect, oriented x 3 ICD10 Worksheet Patient Problems: Problems Problem Status Onset Pubic ramus fracture Acute
[2018-08-18] MEDS: SENNOSIDES/DOCUSATE SODIUM TAB PO SCH (12:19)
[2018-08-18] MEDS: traZODone 50 MG TAB PO SCH (21:34)
[2018-08-18] MEDS: morphINE SR 15 MG TAB PO PRN (21:34)
[2018-08-18] MEDS: PATCH REMOVAL 1 EA PATCH TD SCH (21:43)
[2018-08-19] MEDS: CEPHALEXIN 500 MG CAP PO SCH ×5 (00:45→23:47)
[2018-08-19] MEDS: ASPIRIN EC 81 MG TAB PO SCH (08:47)
[2018-08-19] MEDS: CHOLECALCIFEROL VIT D3 2,000 UNITS TAB/CAP PO SCH (08:47)
[2018-08-19] MEDS: ENOXAPARIN 40 MG/0.4 ML SYR SC SCH (08:47)
[2018-08-19] MEDS: ACETAMINOPHEN 500 MG TAB PO SCH ×3 (08:47→21:37)
[2018-08-19] MEDS: POLYETHYLENE GLYCOL 3350 17 GM PKT PO SCH ×2 (08:47→21:41)
[2018-08-19] MEDS: LIDOCAINE 4%/MENTHOL 1% PATCH TD SCH (08:48)
--- NOTE | 2018-08-19 10:58 | SOAPPROG ---
SOAP Progress Note Assessment/Plan: Assessment: Major multiple fractures status post ORIF of the left olecranon and ulna, left tibial plateau, and right femur with touchdown weightbearing on the left upper and lower extremity. PT and OT to optimize mobility and activities of daily living. * Initial functional independence measure is 58 on 08/13/2018. Moderate assist for bed mobility. Fearful with transfers, needs 2 person max assist. Sit to stand requires max assist with quad cane. Left knee flexion limited to 45 degrees. Transfers better from and to raised surfaces. Upper body dressing with min assist, lower body with mod assist. * Has progressed to standby assist for bed mobility and moderate to maximal assist of 1 person for transfers. * Discussed with orthopedic KOMAL Oconnor, special events assistant for Dr. Jeronimo. May remove splint from the left upper extremity and initiate hinged brace with range of motion 0-90 degrees. * Continue PT and OT. Cognitive issues post-concussion. * Continue TEST ENGINE EVALUATOR. Infections: UTI and cellulitis. UA consistent with UTI, 08/13/2018. Started nitrofurantoin 100 mg BID 08/14/2018 for 7 days. Antibiotics changed to cephalexin for left lower leg cellulitis, which has responded well. Continue 7 days total. * UTI symptoms have completely resolved. * Had pyridium at HS starting 08/15/2018 X 2 days to try to reduce irritative voiding symptoms overnight. * Bearden-sensitive E. coli on urine culture. Insomnia. * Fatigue, morning of 08/12/2018. Unclear etiology. BMP wnl and not dehydrated. CBC with improved anemia but WBCs higher. * Improved with DC of gabapentin. * Discontinue melatonin as it has not been effective. Initiated trazodone 25 mg at HS starting 08/15/2018 and morphine SR 15 mg at HS. * Trial of no morphine SR tonight, 08/19/2018, and due to hypotension this morning, which may have been due to the morphine. Orthostatic hypotension. * She has had reduced p.o intake due to desire to reduce nocturia and use of bed bearden. * May also be related to prolonged time supine during her hospitalization. * Encourage increased fluid intake but can stop after dinner. Hope that nocturia improves with treatment of UTI. Osteoporosis. She has been treated with denosumab and she was concerned about how that might affect her bone healing. Her last injection was in June of this year and she gets injections every 6 months. * Discussed with Dr. Miller, 08/12/2018. Denies you mad most likely does not interfere with healing, and there is no specific medication or other course of action to improve bone healing while on denosumab. * Resume her home dose of cholecalciferol, 5000 units q.day. Pain management. Continue hydromorphone as ordered out of the hospital. Increased gabapentin from 200 mg three times daily to 300 mg three times daily and will monitor efficacy of pain management. Did not continue ketorolac as she needs to be simultaneously on anticoagulation and she also takes aspirin, and ketorolac would add to her risk for GI bleed. * Nursing to offer hydromorphone prior to morning ADLs. Not used since . * Discontinued methocarbamol, 08/12/2018, as there does not seem to be muscle spasm. * Discontinued gabapentin, 08/12/2018, due to sedation. Also has not seemed to improve her pain management. * Trial of morphine SR at , 08/15/2018. Changed to p.r.n. 08/16/2018. Anemia most likely due to blood loss from trauma and surgeries. Had transfusions x2 with initial hospitalization. * Hemoglobin and hematocrit have drifted down from 8.1 and 25.5 on 08/09/2018 to 7.5 and 23.6 on 08/12/2018, likely expected post transfusion. Improving 2018. History of coronary stenting due to iatrogenic injury during coronary catheterization. Continue aspirin 81 mg daily. Hypertension. Blood pressure medications have been held. Monitor for increased blood pressure and reduce medications as needed. Anxiety. She is reticent to take medications. Hope for improvement with better sleep. Opiate-induced constipation. Continue polyethylene glycol and senna. Has had multiple bowel movements. Laxatives have been changed to p.r.n.. Prophylaxis. With her recent trauma and her toe-touch weightbearing status on the left lower extremity, she is at elevated risk for DVT and will be treated with enoxaparin 40 mg subcutaneous daily. DISPOSITION: may not be able to provide sufficient assistance; may consider respite stay at [facility], depending on progress. Discharge date set for . Followup. * She was to follow up with orthopedic surgeon, Dr. Александр Jeronimo, at 2 weeks post surgery, which would be 08/20/2018. Discussed with KOMAL Oconnor, special events assistant Dr. Jeronimo , 08/18/2018. Does need to follow up this week. There would be no change in weight-bearing status and they would not be taking x-rays. Acute of follow-up after discharge. * Wound care and staple removal discussed with orthopedic surgeon Dr. Kennedy at [facility] in [place]. 11 days would be on the early side to remove josé from ORIF of right femur. Will order removal on 08/15/2018. * She can pursue followup with ENT if her nasal fracture does not heal with a satisfactory cosmetic result. * Her power driven brush maker is Dr. Modesto Miller and her primary care physician, Dr. Mary Anne Chang. Justification for wheelchair: * This patient has a mobility limitation that significantly impairs 1 or more mobility related ADLs in the home. Her functional mobility deficit cannot be resolved with a walker or cane. Her home is adequate for accessing rooms, maneuvering space and surfaces. Wheelchair will significantly improve her ability to participate in mobility related ADLs and she will use it regularly. Patient has not expressed and unwillingness to use the wheelchair. Patient has sufficient physical and mental ability to safely use the wheelchair. 08/19/18 14:56 Subjective: Slept well last. Per nursing, she said her legs felt weak this morning. Low blood pressure noted by OT today with a systolic of 86. She was symptomatic with lightheadedness. She is more comfortable horizontal in bed. Denies fevers chills. No cough or dyspnea. No dysuria or urinary frequency. Nocturia has resolved. Pain is adequately controlled. In the afternoon blood pressure is normal and she was not orthostatic. She participated in therapies. Objective: Vital Signs Temp Pulse Resp BP Pulse Ox 36.7 C 56 L 16 86/52 L 93 08/19/18 08:00 08/19/18 09:54 08/19/18 08:00 08/19/18 09:54 08/19/18 08:00 Laboratory Results 08/13/18 09:40 08/13/18 09:40 08/18/18 08/19/18 08/20/18 05:59 05:59 05:59 Intake Total 1250 950 Output Total 2251 1950 500 Balance -1001 -1000 -500 Physical Exam - Physical Exam General Appearance: WD/WN, alert, no apparent distress, thin Respiratory: normal breath sounds, crackles (Few left lower lobe which clear after deep inspiration), No rhonchi, No wheezing Cardiac/Chest: regular rate, rhythm, No edema, No JVD, No diastolic murmur, No systolic murmur Skin: normal color, warm/dry, other (Incisions examined. All clean dry and intact. [place] and sutures present.) Neuro/Psych: no motor/sensory deficits, alert, normal mood/affect, oriented x 3 ICD10 Worksheet Patient Problems: Problems Problem Status Onset Pubic ramus fracture Acute
[2018-08-19] MEDS: traZODone 50 MG TAB PO SCH (21:38)
[2018-08-19] MEDS: PATCH REMOVAL 1 EA PATCH TD SCH (21:41)
[2018-08-20] MEDS: CEPHALEXIN 500 MG CAP PO SCH ×3 (06:00→16:41)
[2018-08-20] MEDS: ENOXAPARIN 40 MG/0.4 ML SYR SC SCH (08:05)
[2018-08-20] MEDS: CHOLECALCIFEROL VIT D3 2,000 UNITS TAB/CAP PO SCH (08:05)
[2018-08-20] MEDS: ASPIRIN EC 81 MG TAB PO SCH (08:06)
[2018-08-20] MEDS: ACETAMINOPHEN 500 MG TAB PO SCH ×3 (08:06→21:50)
[2018-08-20] MEDS: POLYETHYLENE GLYCOL 3350 17 GM PKT PO SCH (08:07)
[2018-08-20] MEDS: LIDOCAINE 4%/MENTHOL 1% PATCH TD SCH (08:07)
--- NOTE | 2018-08-20 11:36 | SOAPPROG ---
SOAP Progress Note Assessment/Plan: Assessment: Major multiple fractures status post ORIF of the left olecranon and ulna, left tibial plateau, and right femur with touchdown weightbearing on the left upper and lower extremity. PT and OT to optimize mobility and activities of daily living. * Initial functional independence measure is 58 on 08/13/2018, improved to 83 as of 08/20/2018. Does squat pivot transfer with minimal assistance, stand pivot transfer with maximal assistance using a quad cane. For wheelchair mobility she needs occasional cues. She does grooming and hygiene seated with modified independence. She dresses in bed with setup to standby assist. Shower and toilet transfers require moderate assistance. Bathing requires minimal assistance. * Has progressed to standby assist for bed mobility and moderate to maximal assist of 1 person for transfers. * Discussed with orthopedic KOMAL Oconnor, statistical assistant for Dr. Jeronimo. May remove splint from the left upper extremity and initiate hinged brace with range of motion 0-90 degrees. * Continue PT and OT. Post-concussion education. * Continue EMBOSSING PRESS OPERATOR 2-3 days per week. Infections: UTI and cellulitis. UA consistent with UTI, 08/13/2018. Started nitrofurantoin 100 mg BID 08/14/2018 for 7 days. Antibiotics changed to cephalexin for left lower leg cellulitis, which has responded well. Continue 7 days total. * UTI symptoms have completely resolved. * Had pyridium at HS starting 08/15/2018 X 2 days to try to reduce irritative voiding symptoms overnight. * Bearden-sensitive E. coli on urine culture. Insomnia. * Fatigue, morning of 08/12/2018. Unclear etiology. BMP wnl and not dehydrated. CBC with improved anemia but WBCs higher. * Improved with DC of gabapentin. * Discontinue melatonin as it has not been effective. Initiated trazodone 25 mg at HS starting 08/15/2018 and morphine SR 15 mg at HS. * Used no morphine no morphine SR overnight, 08/19/2018. Slept well and feels good, 08/20/2018. Orthostatic hypotension. * She has had reduced p.o intake due to desire to reduce nocturia and use of bed bearden. * May also be related to prolonged time supine during her hospitalization. * Encourage increased fluid intake but can stop after dinner. Hope that nocturia improves with treatment of UTI. Osteoporosis. She has been treated with denosumab and she was concerned about how that might affect her bone healing. Her last injection was in June of this year and she gets injections every 6 months. * Discussed with Dr. Miller, 08/12/2018. Denies you mad most likely does not interfere with healing, and there is no specific medication or other course of action to improve bone healing while on denosumab. * Resume her home dose of cholecalciferol, 5000 units q.day. Pain management. Continue hydromorphone as ordered out of the hospital. Increased gabapentin from 200 mg three times daily to 300 mg three times daily and will monitor efficacy of pain management. Did not continue ketorolac as she needs to be simultaneously on anticoagulation and she also takes aspirin, and ketorolac would add to her risk for GI bleed. * Nursing to offer hydromorphone prior to morning ADLs. Not used since . * Discontinued methocarbamol, 08/12/2018, as there does not seem to be muscle spasm. * Discontinued gabapentin, 08/12/2018, due to sedation. Also has not seemed to improve her pain management. * Trial of morphine SR at , 08/15/2018. Changed to p.r.n. 08/16/2018. Anemia most likely due to blood loss from trauma and surgeries. Had transfusions x2 with initial hospitalization. * Hemoglobin and hematocrit have drifted down from 8.1 and 25.5 on 08/09/2018 to 7.5 and 23.6 on 08/12/2018, likely expected post transfusion. Improving 2018. History of coronary stenting due to iatrogenic injury during coronary catheterization. Continue aspirin 81 mg daily. Hypertension. Blood pressure medications have been held. Monitor for increased blood pressure and reduce medications as needed. Anxiety. She is reticent to take medications. Hope for improvement with better sleep. Opiate-induced constipation. Continue polyethylene glycol and senna. Has had multiple bowel movements. Laxatives have been changed to p.r.n.. Prophylaxis. With her recent trauma and her toe-touch weightbearing status on the left lower extremity, she is at elevated risk for DVT and will be treated with enoxaparin 40 mg subcutaneous daily, for 1 month post femur fracture, which would be through 08/28/2018. DISPOSITION: Attended staffing, 15 min, 08/20/2018. Discussed with nursing, dietitian, case management, PT, OT, EMBOSSING PRESS OPERATOR. Plan is to discharge home with her , who will need training. Discharge date set for 08/26/2018. Followup. * She was to follow up with orthopedic surgeon, Dr. Александр Jeronimo, 08/22/2018. Discussed with KOMAL Oconnor, statistical assistant Dr. Jeronimo, 08/18/2018. * She can pursue followup with ENT if her nasal fracture does not heal with a satisfactory cosmetic result. * Her gis developer is Dr. Modesto Miller and her primary care physician, Dr. Mary Anne Chang. Justification for wheelchair: * This patient has a mobility limitation that significantly impairs 1 or more mobility related ADLs in the home. Her functional mobility deficit cannot be resolved with a walker or cane. Her home is adequate for accessing rooms, maneuvering space and surfaces. Wheelchair will significantly improve her ability to participate in mobility related ADLs and she will use it regularly. Patient has not expressed and unwillingness to use the wheelchair. Patient has sufficient physical and mental ability to safely use the wheelchair. 08/20/18 11:31 Subjective: No complaints. Slept well last night. Did not take long-acting morphine. Not in pain. No fevers or chills, no cough or dyspnea. Objective: Vital Signs Temp Pulse Resp BP Pulse Ox 36.8 C 55 L 15 130/73 H 95 08/20/18 06:15 08/20/18 06:15 08/20/18 06:15 08/20/18 06:15 08/20/18 06:15 Laboratory Results 08/13/18 09:40 08/13/18 09:40 08/19/18 08/20/18 08/21/18 05:59 05:59 05:59 Intake Total 950 800 Output Total 1950 2800 400 Balance -1000 -2000 -400 - Time Spent With Patient Time Spent With Patient: Greater than 35 min floor time today, including more than 50% of time in coordination of care during staffing meeting, and counseling patient. Physical Exam - Physical Exam General Appearance: WD/WN, alert, no apparent distress, thin Respiratory: normal breath sounds, No crackles, No rhonchi, No wheezing Cardiac/Chest: regular rate, rhythm, edema (Trace left pretibial), No diastolic murmur, No systolic murmur Skin: normal color, warm/dry Neuro/Psych: no motor/sensory deficits, alert, normal mood/affect, oriented x 3 ICD10 Worksheet Patient Problems: Problems Problem Status Onset Pubic ramus fracture Acute
[2018-08-20] MEDS: traZODone 50 MG TAB PO SCH (21:50)
[2018-08-21] MEDS: CEPHALEXIN 500 MG CAP PO SCH ×4 (00:31→17:53)
[2018-08-21] MEDS: PATCH REMOVAL 1 EA PATCH TD SCH ×2 (00:51→20:39)
[2018-08-21] MEDS: POLYETHYLENE GLYCOL 3350 17 GM PKT PO SCH ×3 (00:52→20:40)
[2018-08-21] MEDS: ASPIRIN EC 81 MG TAB PO SCH (07:58)
[2018-08-21] MEDS: CHOLECALCIFEROL VIT D3 2,000 UNITS TAB/CAP PO SCH (07:58)
[2018-08-21] MEDS: ACETAMINOPHEN 500 MG TAB PO SCH ×3 (07:59→21:01)
[2018-08-21] MEDS: ENOXAPARIN 40 MG/0.4 ML SYR SC SCH (08:00)
[2018-08-21] MEDS: LIDOCAINE 4%/MENTHOL 1% PATCH TD SCH (08:02)
--- NOTE | 2018-08-21 11:55 | SOAPPROG ---
SOAP Progress Note Assessment/Plan: Assessment: Major multiple fractures status post ORIF of the left olecranon and ulna, left tibial plateau, and right femur with touchdown weightbearing on the left upper and lower extremity. PT and OT to optimize mobility and activities of daily living. * Initial functional independence measure is 58 on 08/13/2018, improved to 83 as of 08/20/2018. Does squat pivot transfer with minimal assistance, stand pivot transfer with maximal assistance using a quad cane. For wheelchair mobility she needs occasional cues. She does grooming and hygiene seated with modified independence. She dresses in bed with setup to standby assist. Shower and toilet transfers require moderate assistance. Bathing requires minimal assistance. * Has progressed to standby assist for bed mobility and moderate to maximal assist of 1 person for transfers. * Discussed with orthopedic KOMAL Oconnor, psychiatric technician assistant for Dr. Jeronimo. May remove splint from the left upper extremity and initiate hinged brace with range of motion 0-90 degrees. * Continue PT and OT. Post-concussion education. * Continue EARRING MAKER 2-3 days per week. Infections: UTI and cellulitis. UA consistent with UTI, 08/13/2018. Started nitrofurantoin 100 mg BID 08/14/2018 for 7 days. Antibiotics changed to cephalexin for left lower leg cellulitis, which has responded well. Continue 7 days total. * UTI symptoms have completely resolved. * Had pyridium at HS starting 08/15/2018 X 2 days to try to reduce irritative voiding symptoms overnight. * Armenta-sensitive E. coli on urine culture. Insomnia. * Fatigue, morning of 08/12/2018. Unclear etiology. BMP wnl and not dehydrated. CBC with improved anemia but WBCs higher. * Improved with DC of gabapentin. * Discontinue melatonin as it has not been effective. Initiated trazodone 25 mg at HS starting 08/15/2018 and morphine SR 15 mg at HS. * Used no morphine no morphine SR overnight, 08/19/2018. Slept well and feels good, 08/20/2018. * As of 08/21/2018, trazodone is not effective; will change to as needed. Discussed CBT for insomnia. She reports that normally she is very good sleeper. Continue to monitor. Blood pressure. Had orthostatic hypotension, which has resolved now that she is not taking opiates.. * Blood pressure beginning to run high as of 08/21/2018. Home blood pressure medications were spironolactone 25 mg q.day and amlodipine 2.5 mg q.day. If she is consistently greater than 140/90, would restart medications, probably beginning with spironolactone, but would discussed with patient regarding her preference. Osteoporosis. She has been treated with denosumab and she was concerned about how that might affect her bone healing. Her last injection was in June of this year and she gets injections every 6 months. * Discussed with Dr. Miller, 08/12/2018. Denies you mad most likely does not interfere with healing, and there is no specific medication or other course of action to improve bone healing while on denosumab. * Resume her home dose of cholecalciferol, 5000 units q.day. Pain management. Continue hydromorphone as ordered out of the hospital. Increased gabapentin from 200 mg three times daily to 300 mg three times daily and will monitor efficacy of pain management. Did not continue ketorolac as she needs to be simultaneously on anticoagulation and she also takes aspirin, and ketorolac would add to her risk for GI bleed. * Nursing to offer hydromorphone prior to morning ADLs. Not used since . * Discontinued methocarbamol, 08/12/2018, as there does not seem to be muscle spasm. * Discontinued gabapentin, 08/12/2018, due to sedation. Also has not seemed to improve her pain management. * Trial of morphine SR at , 08/15/2018. Changed to p.r.n. 08/16/2018. Anemia most likely due to blood loss from trauma and surgeries. Had transfusions x2 with initial hospitalization. * Hemoglobin and hematocrit have drifted down from 8.1 and 25.5 on 08/09/2018 to 7.5 and 23.6 on 08/12/2018, likely expected post transfusion. Improving 2018. History of coronary stenting due to iatrogenic injury during coronary catheterization. Continue aspirin 81 mg daily. Anxiety. She is reticent to take medications. Hope for improvement with better sleep. Opiate-induced constipation. Continue polyethylene glycol and senna. Has had multiple bowel movements. Laxatives have been changed to p.r.n.. Prophylaxis. With her recent trauma and her toe-touch weightbearing status on the left lower extremity, she is at elevated risk for DVT and will be treated with enoxaparin 40 mg subcutaneous daily, for 1 month post femur fracture, which would be through 08/28/2018. DISPOSITION: Attended staffing, 15 min, 08/20/2018. Discussed with nursing, dietitian, case management, PT, OT, EARRING MAKER. Plan is to discharge home with her , who will need training. Discharge date set for 08/26/2018. Followup. * Orthopedic surgeon, Dr. Александр Jeronimo, 08/22/2018. * She can pursue followup with ENT if her nasal fracture does not heal with a satisfactory cosmetic result. * Her finishing pan operator is Dr. Modesto Miller and her primary care physician, Dr. Mary Anne Chang. Justification for wheelchair: * This patient has a mobility limitation that significantly impairs 1 or more mobility related ADLs in the home. Her functional mobility deficit cannot be resolved with a walker or cane. Her home is adequate for accessing rooms, maneuvering space and surfaces. Wheelchair will significantly improve her ability to participate in mobility related ADLs and she will use it regularly. Patient has not expressed and unwillingness to use the wheelchair. Patient has sufficient physical and mental ability to safely use the wheelchair. 08/21/18 11:50 Subjective: Reports poor sleep last night and fatigued today. She is worrying about many things. She does not think the trazodone is helping. She reports that her thinks the trazodone might be depressing her. Otherwise without complaints. Objective: Vital Signs Temp Pulse Resp BP Pulse Ox 36.7 C 62 15 141/83 H 93 08/21/18 06:20 08/21/18 06:20 08/21/18 06:20 08/21/18 06:20 08/21/18 06:20 Laboratory Results 08/13/18 09:40 08/13/18 09:40 08/20/18 08/21/18 08/22/18 05:59 05:59 05:59 Intake Total 800 250 Output Total 2800 800 Balance -2000 -550 Physical Exam - Physical Exam General Appearance: WD/WN, alert, no apparent distress, thin Respiratory: No accessory muscle use, No decreased breath sounds Skin: normal color, warm/dry Neuro/Psych: no motor/sensory deficits, alert, normal mood/affect, oriented x 3 ICD10 Worksheet Patient Problems: Problems Problem Status Onset Pubic ramus fracture Acute
[2018-08-21] MEDS: traZODone 50 MG TAB PO SCH (21:50)
[2018-08-22] MEDS: CEPHALEXIN 500 MG CAP PO SCH ×2 (00:31→05:23)
[2018-08-22] MEDS: CHOLECALCIFEROL VIT D3 2,000 UNITS TAB/CAP PO SCH (08:11)
[2018-08-22] MEDS: ACETAMINOPHEN 500 MG TAB PO SCH ×3 (08:12→21:09)
[2018-08-22] MEDS: ASPIRIN EC 81 MG TAB PO SCH (08:12)
[2018-08-22] MEDS: ENOXAPARIN 40 MG/0.4 ML SYR SC SCH (08:13)
[2018-08-22] MEDS: LIDOCAINE 4%/MENTHOL 1% PATCH TD SCH (08:20)
[2018-08-22] MEDS: POLYETHYLENE GLYCOL 3350 17 GM PKT PO SCH ×2 (08:20→22:10)
--- NOTE | 2018-08-22 13:22 | HOSPPROG ---
Hospitalist Progress Note Assessment/Plan: Major multiple fractures status post ORIF of the left olecranon and ulna, left tibial plateau, and right femur with touchdown weightbearing on the left upper and lower extremity. PT and OT to optimize mobility and activities of daily living. * Initial functional independence measure is 58 on 08/13/2018, improved to 83 as of 08/20/2018. Does squat pivot transfer with minimal assistance, stand pivot transfer with maximal assistance using a quad cane. For wheelchair mobility she needs occasional cues. She does grooming and hygiene seated with modified independence. She dresses in bed with setup to standby assist. Shower and toilet transfers require moderate assistance. Bathing requires minimal assistance. * Has progressed to standby assist for bed mobility and moderate to maximal assist of 1 person for transfers. * Discussed with orthopedic KOMAL Oconnor, therapeutic assistant for Dr. Jeronimo. May remove splint from the left upper extremity and initiate hinged brace with range of motion 0-90 degrees. * Continue PT and OT. * NEW PT ORDERS FROM ORTHO Post-concussion education. * Continue PROFESSOR OF VOICE 2-3 days per week. Infections: UTI and cellulitis. UA consistent with UTI, 08/13/2018. Started nitrofurantoin 100 mg BID 08/14/2018 for 7 days. Antibiotics changed to cephalexin for left lower leg cellulitis, which has responded well. Continue 7 days total. * UTI symptoms have completely resolved. * Had pyridium at HS starting 08/15/2018 X 2 days to try to reduce irritative voiding symptoms overnight. * Armenta-sensitive E. coli on urine culture. Insomnia. * Fatigue, morning of 08/12/2018. Unclear etiology. BMP wnl and not dehydrated. CBC with improved anemia but WBCs higher. * Improved with DC of gabapentin. * Discontinue melatonin as it has not been effective. Initiated trazodone 25 mg at HS starting 08/15/2018 and morphine SR 15 mg at HS. * Used no morphine no morphine SR overnight, 08/19/2018. Slept well and feels good, 08/20/2018. * As of 08/21/2018, trazodone is not effective; will change to as needed. Discussed CBT for insomnia. She reports that normally she is very good sleeper. Continue to monitor. * STOP TRAZADONE 08/22 Blood pressure. Had orthostatic hypotension, which has resolved now that she is not taking opiates.. * Blood pressure beginning to run high as of 08/21/2018. Home blood pressure medications were spironolactone 25 mg q.day and amlodipine 2.5 mg q.day. If she is consistently greater than 140/90, would restart medications, probably beginning with spironolactone, but would discussed with patient regarding her preference. Osteoporosis. She has been treated with denosumab and she was concerned about how that might affect her bone healing. Her last injection was in June of this year and she gets injections every 6 months. * Discussed with Dr. Miller, 08/12/2018. Denies you mad most likely does not interfere with healing, and there is no specific medication or other course of action to improve bone healing while on denosumab. * Resume her home dose of cholecalciferol, 5000 units q.day. Pain management. Continue hydromorphone as ordered out of the hospital. Increased gabapentin from 200 mg three times daily to 300 mg three times daily and will monitor efficacy of pain management. Did not continue ketorolac as she needs to be simultaneously on anticoagulation and she also takes aspirin, and ketorolac would add to her risk for GI bleed. * Nursing to offer hydromorphone prior to morning ADLs. Not used since . * Discontinued methocarbamol, 08/12/2018, as there does not seem to be muscle spasm. * Discontinued gabapentin, 08/12/2018, due to sedation. Also has not seemed to improve her pain management. * Trial of morphine SR at , 08/15/2018. Changed to p.r.n. 08/16/2018. Anemia most likely due to blood loss from trauma and surgeries. Had transfusions x2 with initial hospitalization. * Hemoglobin and hematocrit have drifted down from 8.1 and 25.5 on 08/09/2018 to 7.5 and 23.6 on 08/12/2018, likely expected post transfusion. Improving 2018. History of coronary stenting due to iatrogenic injury during coronary catheterization. Continue aspirin 81 mg daily. Anxiety. She is reticent to take medications. Hope for improvement with better sleep. Opiate-induced constipation. Continue polyethylene glycol and senna. Has had multiple bowel movements. Laxatives have been changed to p.r.n.. Prophylaxis. With her recent trauma and her toe-touch weightbearing status on the left lower extremity, she is at elevated risk for DVT and will be treated with enoxaparin 40 mg subcutaneous daily, for 1 month post femur fracture, which would be through 08/28/2018. Subjective: came back from ortho appt. everything looks good. new PT orders. trazadone not working and maybe making her more depressed. she will try without Objective: Vital Signs Temp Pulse Resp BP Pulse Ox 36.6 C 65 16 145/83 H 94 08/22/18 07:35 08/22/18 07:35 08/22/18 07:35 08/22/18 07:35 08/22/18 07:35 Laboratory Results 08/13/18 09:40 08/13/18 09:40 08/21/18 08/22/18 08/23/18 05:59 05:59 05:59 Intake Total 250 850 Output Total 800 200 Balance -550 650 - Physical Exam Constitutional: no apparent distress, appears nourished, not in pain Eyes: anicteric sclera, EOMI Ears, Nose, Mouth, Throat: moist mucous membranes Cardiovascular: regular rate and rhythym Respiratory: no respiratory distress Skin: warm, other (left leg incision josé out) Neurologic: AAOx3 Psychiatric: interacting appropriately, not anxious, not encephalopathic, thought process linear ICD10 Worksheet Patient Problems: Problems Problem Status Onset Pubic ramus fracture Acute
[2018-08-22] MEDS: PATCH REMOVAL 1 EA PATCH TD SCH (22:11)
[2018-08-23] MEDS: ACETAMINOPHEN 500 MG TAB PO SCH ×3 (08:53→21:29)
[2018-08-23] MEDS: ASPIRIN EC 81 MG TAB PO SCH (08:53)
[2018-08-23] MEDS: LIDOCAINE 4%/MENTHOL 1% PATCH TD SCH (08:54)
[2018-08-23] MEDS: CHOLECALCIFEROL VIT D3 2,000 UNITS TAB/CAP PO SCH (08:54)
[2018-08-23] MEDS: POLYETHYLENE GLYCOL 3350 17 GM PKT PO SCH ×2 (08:54→20:45)
[2018-08-23] MEDS: ENOXAPARIN 40 MG/0.4 ML SYR SC SCH (08:54)
[2018-08-23] MEDS ORDERED: ZOLPIDEM TARTRATE 5 MG TAB PO PRN (10:13)
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
[2018-08-23] MEDS: PATCH REMOVAL 1 EA PATCH TD SCH (13:07)
[2018-08-24] MEDS: CHOLECALCIFEROL VIT D3 2,000 UNITS TAB/CAP PO SCH (08:21)
[2018-08-24] MEDS: ASPIRIN EC 81 MG TAB PO SCH (08:21)
[2018-08-24] MEDS: ENOXAPARIN 40 MG/0.4 ML SYR SC SCH (08:21)
[2018-08-24] MEDS: ACETAMINOPHEN 500 MG TAB PO SCH ×3 (09:42→21:15)
[2018-08-24] MEDS: LIDOCAINE 4%/MENTHOL 1% PATCH TD SCH (09:42)
[2018-08-24] MEDS: POLYETHYLENE GLYCOL 3350 17 GM PKT PO SCH (09:42)
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
[2018-08-24] MEDS ORDERED: LIDOCAINE 4%/MENTHOL 1% PATCH TD PRN (10:00)
[2018-08-24] MEDS ORDERED: POLYETHYLENE GLYCOL 3350 17 GM PKT PO PRN (10:00)
[2018-08-24] MEDS: PATCH REMOVAL 1 EA PATCH TD SCH (14:41)
[2018-08-25] MEDS: ACETAMINOPHEN 500 MG TAB PO SCH ×3 (09:05→21:43)
[2018-08-25] MEDS: CHOLECALCIFEROL VIT D3 2,000 UNITS TAB/CAP PO SCH (09:06)
[2018-08-25] MEDS: ASPIRIN EC 81 MG TAB PO SCH (09:07)
[2018-08-25] MEDS: ENOXAPARIN 40 MG/0.4 ML SYR SC SCH (09:07)
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
[2018-08-25] MEDS: PATCH REMOVAL 1 EA PATCH TD SCH (21:27)
[2018-08-26] MEDS: CHOLECALCIFEROL VIT D3 2,000 UNITS TAB/CAP PO SCH (09:55)
[2018-08-26] MEDS: ASPIRIN EC 81 MG TAB PO SCH (09:56)
[2018-08-26] MEDS: ENOXAPARIN 40 MG/0.4 ML SYR SC SCH (09:56)
[2018-08-26] MEDS: ACETAMINOPHEN 500 MG TAB PO SCH ×3 (09:56→20:56)
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
--- NOTE | 2018-08-26 14:24 | PDOREHIP ---
Admission [facility] - Admission - 3 Day Assessment Period Admission Date/Day 1: 08/11/18 Day 2: 08/12/18 Day 3: 08/13/18 - Active Diagnoses Comorbidities and Co-existing Conditions at Admission: 20281. None of the Above Discharge [facility] - Discharge - 3 Day Assessment Period 2 Days Prior to Anticipated Discharge Date: 08/25/18 1 Day Prior to Anticipated Discharge Date: 08/26/18 Anticipated Discharge Date: 08/27/18 - Discharge Skin Conditions Unhealed Pressure Ulcer (1 or more/Stage 1 or >)-Discharge: 0. No # Stage 1 Pressure Ulcers-Discharge: 0 # Stage 2 Pressure Ulcers-Discharge: 0 # of These Stage 2 Pressure Ulcers Present on Admission: 0 # Stage 3 Pressure Ulcers-Discharge: 0 # of These Stage 3 Pressure Ulcers Present on Admission: 0 # Stage 4 Pressure Ulcers-Discharge: 0 # of These Stage 4 Pressure Ulcers Present on Admission: 0 # Unstageable Pressure Ulcers (Non-remove Dress)-Discharge: 0 # These Unstageable Pressure Ulcers (NRD)-Present on Admit: 0 # Unstageable Pressure Ulcers (Slough/Eschar)-Discharge: 0 # These Unstageable Pressure Ulcers(Slough) Present on Admit: 0 # Unstageable Pressure Ulcers (Deep Tissue Injury)-Discharge: 0 # These Unstageable Pressure Ulcers (DTI) Present on Admit: 0
[2018-08-26] MEDS: PATCH REMOVAL 1 EA PATCH TD SCH (21:12)
[2018-08-27] MEDS: ASPIRIN EC 81 MG TAB PO SCH (08:50)
[2018-08-27] MEDS: ACETAMINOPHEN 500 MG TAB PO SCH (08:50)
[2018-08-27] MEDS: ENOXAPARIN 40 MG/0.4 ML SYR SC SCH (08:50)
[2018-08-27] MEDS: CHOLECALCIFEROL VIT D3 2,000 UNITS TAB/CAP PO SCH (08:50)
[2018-08-27 11:08] VITALS: BP 109/72
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
== END 2018-08-27 16:20 | disposition home health service (06) | DRG 560 ==
LOC: BREH 16:57
PROVIDERS: ADMIT Internal Medicine Hospice and Palliative Medicine; ATTEND Internal Medicine Hospice and Palliative Medicine
PROC: F08Z7ZZ Vocational Activities and Functional Community or Work Reintegration Skills Treatment (ICD-10-PCS; principal; 2018-08-11)
PROC: F0636ZZ Communicative/Cognitive Integration Skills Treatment of Neurological System - Whole Body (ICD-10-PCS; principal; 2018-08-11)
PROC: F07M3ZZ Motor Function Treatment of Musculoskeletal System - Whole Body (ICD-10-PCS; principal; 2018-08-11)
DX: S72.301D Unspecified fracture of shaft of right femur, subsequent encounter for closed fracture with routine healing (principal); S52.032D Displaced fracture of olecranon process with intraarticular extension of left ulna, subsequent encounter for closed fracture with routine healing; S52.002 Unspecified fracture of upper end of left ulna; S82.142D Displaced bicondylar fracture of left tibia, subsequent encounter for closed fracture with routine healing; S92.351D Displaced fracture of fifth metatarsal bone, right foot, subsequent encounter for fracture with routine healing; S02.2XXD Fracture of nasal bones, subsequent encounter for fracture with routine healing; V49.49XD Driver injured in collision with other motor vehicles in traffic accident, subsequent encounter; D62 Acute posthemorrhagic anemia; G89.11 Acute pain due to trauma; D64.89 Other specified anemias; N39.0 Urinary tract infection, site not specified; B96.20 Unspecified Escherichia coli [E. coli] as the cause of diseases classified elsewhere; G47.00 Insomnia, unspecified; F41.9 Anxiety disorder, unspecified; F32.9 Major depressive disorder, single episode, unspecified; M81.0 Age-related osteoporosis without current pathological fracture; K59.03 Drug induced constipation; T40.2X5A Adverse effect of other opioids, initial encounter; I10 Essential (primary) hypertension; Z95.5 Presence of coronary angioplasty implant and graft; Z79.82 Long term (current) use of aspirin
CPT/HCPCS: 92507-GN; 92523-GN; 97110-GO; 97110-GP; 97163-GP; 97166-GO; 97530-GO; 97530-GP; 97535-GO; 97542-GP; G0515-GO; J1650